=== PATIENT | male | born 1980 | race Asian ===

== ENCOUNTER 2017-03-29 05:25 | Emergency (ER) | payer OTHER ==
[2017-03-29 05:30] VITALS: BP 132/73
== END 2017-03-29 06:01 | disposition home or self-care (01) ==
LOC: ED 05:25
DX: L02.31 Cutaneous abscess of buttock (principal)

== ENCOUNTER 2018-07-12 14:21 | Emergency (ER) | payer OTHER ==
[~2018-07-12] VITALS: Ht 162.6 cm; Wt 62.6 kg
[2018-07-12 14:23] VITALS: Ht 162.6 cm; Wt 62.6 kg
[2018-07-12 15:28] VITALS: BP 130/82
== END 2018-07-12 15:28 | disposition home or self-care (01) ==
LOC: ED 14:21
DX: S63.601A Unspecified sprain of right thumb, initial encounter (principal); Z88.6 Allergy status to analgesic agent; X58.XXXA Exposure to other specified factors, initial encounter; Y93.89 Activity, other specified; Y92.89 Other specified places as the place of occurrence of the external cause; Y99.8 Other external cause status

== ENCOUNTER 2018-12-19 09:34 | Emergency (ER) | payer OTHER ==
[~2018-12-19] VITALS: Ht 162.6 cm; Wt 63.5 kg
[2018-12-19 09:45] VITALS: Ht 162.6 cm; Wt 63.5 kg
[2018-12-19 11:01] VITALS: BP 140/76
== END 2018-12-19 11:01 | disposition home or self-care (01) ==
LOC: ED 09:34
DX: S39.012A Strain of muscle, fascia and tendon of lower back, initial encounter (principal); M41.9 Scoliosis, unspecified; I10 Essential (primary) hypertension; Z88.6 Allergy status to analgesic agent; X50.1XXA Overexertion from prolonged static or awkward postures, initial encounter; Y93.75 Activity, martial arts; Y92.89 Other specified places as the place of occurrence of the external cause; Y99.8 Other external cause status

== ENCOUNTER 2018-12-20 06:56 | Emergency (ER) | payer OTHER ==
[~2018-12-20] VITALS: Ht 152.4 cm; Wt 64.4 kg
[2018-12-20 07:03] VITALS: Ht 152.4 cm; Wt 64.4 kg
[2018-12-20 09:16] LABS: microscopic required? NO
[2018-12-20 09:21] LABS: CALCIUM 8.4 mg/dL (8.5-10.1); CARBON DIOXIDE 27.4 mmol/L (21-32); CHLORIDE SERUM 104 mmol/L (98-107); CREATININE SERUM 0.8 mg/dL (0.7-1.3); GFR1 > 60 mL/min; GLUCOSE SERUM 96 mg/dL (74-106); POTASSIUM SERUM 4.3 mmol/L (3.5-5.1); SODIUM SERUM 141 mmol/L (136-145)
[2018-12-20 09:35] LABS: ALBUMIN 3.8 g/dL (3.4-5.0); ALKALINE PHOSPHATASE 70 U/L (46-116); ALT/SGPT 21 U/L (16-63); AST/SGOT 14 U/L (15-37); BILIRUBIN TOTAL 0.3 mg/dL (0.20-1.00); CHOLESTEROL 167 mg/dL (<200); HDL CHOLESTEROL 58 mg/dL (40-60); LIPASE 306 IU/L (73-393); MAGNESIUM 1.8 mg/dL (1.8-2.4); T4(THYROXINE) 8.5 ug/dL (4.7-13.3); TOTAL PROTEIN, SERUM 7.1 g/dL (6.4-8.2)
[2018-12-20 11:41] LABS: urine erythrocyte NEGATIVE (NEGATIVE)
[2018-12-20 12:00] LABS: AMPHETAMINE QUAL UR NONE DETECTED (See below)
[2018-12-20 13:11] LABS: BASOPHIL % 0.2 % (0-2); PLATELET COUNT 251 x10^3mcL (130-400); RED CELL DISTRIBUTION WIDTH 12.1 % (11.5-14.5)
[2018-12-20 13:28] VITALS: BP 133/80
== END 2018-12-20 13:28 | disposition home or self-care (01) ==
LOC: ED 06:56
PROVIDERS: Emergency Medicine
DX: R55 Syncope and collapse (principal); M51.16 Intervertebral disc disorders with radiculopathy, lumbar region; Z98.890 Other specified postprocedural states; Z88.6 Allergy status to analgesic agent
CPT/HCPCS: 82962; J1100; J7030; Q0092